=== PATIENT | female | born 1960 | race Caucasian/White ===

== ENCOUNTER → 2017-01-23 | Outpatient (CLI) | payer OTHER ==
[~2017-01-23] MED LIST: ASPI-496 PO; CHELATED MAGNESIUM PO; CHOL200024 PO; DILT180C59 PO; ESOM20CA PO; GARL1TAB2 PO; MELO7.5T31 PO; METO-40 PO; OMEG-14 PO; OMNIPAQUE 350 MG/ML, 150 ML BOTTLE ONE; [UNRECOGNIZED DRUG - OTHER] PO
== END ==
LOC: CFH 11:54
PROVIDERS: ATTEND Internal Medicine Cardiovascular Disease
DX: I48.91 Unspecified atrial fibrillation (principal)
CPT/HCPCS: 71020; 75572; Q9967

== ENCOUNTER → 2017-01-23 | Outpatient (CLI) | payer OTHER ==
[~2017-01-23] MED LIST changes: -OMNIPAQUE 350 MG/ML, 150 ML BOTTLE ONE
[2017-01-23 14:37] LABS: HEMATOCRIT 44.8 % (34.6-47.8); HEMOGLOBIN 14.9 g/dL (11.7-16.4)
[2017-01-23 14:47] LABS: ASPARTATE AMINO TRANSFERASE 29 U/L (15-37); BLOOD UREA NITROGEN 18 mg/dL (7-18)
== END | disposition home or self-care (01) ==
LOC: STAR 13:32
PROVIDERS: ATTEND Internal Medicine Cardiovascular Disease
DX: Z01.818 Encounter for other preprocedural examination (principal); I48.91 Unspecified atrial fibrillation
CPT/HCPCS: 36415; 80053; 85025

== ENCOUNTER 2017-01-27 06:39 | Observation (INO) | payer OTHER ==
[2017-01-23 14:00] VITALS: BP 156/89
[~2017-01-27] VITALS: Ht 165.1 cm; Wt 92.5 kg
[~2017-01-27 06:39] MED LIST changes: -GARL1TAB2 PO; -[UNRECOGNIZED DRUG - OTHER] PO
[2017-01-27] MEDS ORDERED: SODIUM CHLORIDE 0.9% 1,000 ML IV SCH ×2 (06:53→07:00)
[2017-01-27] MEDS ORDERED: LIDOCAINE 2%, 20ML ONE (07:49)
[2017-01-27] MEDS ORDERED: HEPARIN 1,000 UNITS/ML, 10ML ONE (07:49)
[2017-01-27] MEDS ORDERED: MIDAZOLAM 1 MG/ML, 5ML ONE (07:50)
[2017-01-27] MEDS ORDERED: FENTANYL PF 250 MCG/5ML ONE (07:50)
[2017-01-27] MEDS ORDERED: ONDANSETRON 2MG/ML, 2ML ONE (08:07)
[2017-01-27] MEDS ORDERED: PROPOFOL 10 MG/ML, 20ML ONE (08:07)
[2017-01-27] MEDS ORDERED: DEXAMETHASONE 4 MG/ML, 1ML ONE (08:07)
[2017-01-27] MEDS ORDERED: SUCCINYLCHOLINE 20 MG/ML, 10ML ONE (08:07)
[2017-01-27] MEDS ORDERED: ISOPROTERENOL 0.2MG/ML, 5ML ONE (10:26)
[2017-01-27] MEDS ORDERED: APIXABAN 5 MG TABLET ONE (10:47)
[2017-01-27] MEDS ORDERED: PROTAMINE SULFATE 10 MG/ML, 5ML ONE (10:47)
[2017-01-27] MEDS ORDERED: LORazepam 2 MG/ML, 1ML IVPush PRN (11:30)
[2017-01-27] MEDS ORDERED: PROMETHAZINE 25 MG/ML, 1ML IV PRN (11:30)
[2017-01-27] MEDS: APIXABAN 5 MG TABLET PO SCH ×2 (11:30→21:19)
[2017-01-27] MEDS ORDERED: ONDANSETRON 2MG/ML, 2ML IVPush PRN (11:30)
[2017-01-27] MEDS ORDERED: HYDROmorphone 1 MG/ML, 1ML IV PRN (11:30)
[2017-01-27] MEDS ORDERED: MEPERIDINE/PF 25MG/0.5ML IVPush PRN (11:30)
[2017-01-27] MEDS ORDERED: OXYcodone 5 MG/5 ML ORAL.SOL UDC PO PRN (11:30)
[2017-01-27] MEDS ORDERED: FENTANYL PF 100 MCG/2ML IV PRN (11:30)
[2017-01-27] MEDS ORDERED: ZOLPIDEM 5MG TABLET PO PRN (11:30)
[2017-01-27] MEDS ORDERED: MIDAZOLAM 1 MG/ML, 2ML IV PRN (11:30)
[2017-01-27] MEDS ORDERED: EPHEDRINE 50 MG/ML, 1ML IVPush PRN (11:30)
[2017-01-27] MEDS ORDERED: ACETAMINOPHEN 325 MG TABLET PO PRN ×2 (11:30)
[2017-01-27] MEDS ORDERED: LABETALOL 5MG/ML, 20ML IV PRN (11:30)
[2017-01-27 14:30] VITALS: BP 126/79
[2017-01-27] MEDS ORDERED: [UNRECOGNIZED DRUG - OTHER] PO (18:42)
[2017-01-27] MEDS ORDERED: GARL1TAB2 PO (18:42)
[2017-01-27 18:45] VITALS: BP 119/77
[2017-01-27] MEDS: DILTIAZEM HCL 180 MG PO SCH (21:00)
[2017-01-28 01:30] VITALS: BP 120/74
[2017-01-28 08:45] VITALS: BP 118/73
[2017-01-28] MEDS: DILTIAZEM HCL 180 MG PO SCH (09:00)
[2017-01-28] MEDS ORDERED: MELOXICAM 15 MG TABLET PO SCH (09:00)
[2017-01-28] MEDS ORDERED: CHELATED MAGNESIUM PO SCH (09:00)
[2017-01-28] MEDS ORDERED: CHOLECALCIFEROL 1,000 UNIT TABLET PO SCH (09:00)
[2017-01-28] MEDS ORDERED: OMEGA-3/FISH OIL CAPSULE PO SCH (09:00)
[2017-01-28] MEDS: APIXABAN 5 MG TABLET PO SCH (09:09)
[2017-01-28] MEDS ORDERED: APIX5TAB PO (09:46)
== END 2017-01-28 11:10 | disposition home or self-care (01) ==
LOC: CACL 06:39 → ORIP 11:12 → 5SO 14:14 → DCLOUNGE 01-28 11:05
PROVIDERS: ADMIT Internal Medicine Cardiovascular Disease; ATTEND Internal Medicine Cardiovascular Disease
DX: I48.0 Paroxysmal atrial fibrillation (principal); C85.90 Non-Hodgkin lymphoma, unspecified, unspecified site; Z79.01 Long term (current) use of anticoagulants
CPT/HCPCS: 85347; 93306; 93312; 93321; 93325; 93613; 93656; 93662; C1730; C1732; C1759; C1766; C1893; C1894; G0378; J0330; J1100; J1644; J2250; J2405; J2704; J2720; J3010; J3490; C1760

== ENCOUNTER → 2020-09-25 | Outpatient (CLI) | payer BC, OTHER ==
[~2020-09-25] MED LIST changes: +APIX5TAB PO; +GARL1TAB2 PO; +[UNRECOGNIZED DRUG - OTHER] PO
== END | disposition home or self-care (01) ==
LOC: CFH 07:37
PROVIDERS: ATTEND Nurse Practitioner Family
DX: I08.0 Rheumatic disorders of both mitral and aortic valves (principal); I48.0 Paroxysmal atrial fibrillation; I10 Essential (primary) hypertension
CPT/HCPCS: 93306; 93356